=== PATIENT | female | born 1995 | race Caucasian/White ===

== ENCOUNTER 2016-07-17 17:00 | Emergency (ER) | payer MEDICAID ==
[~2016-07-17] VITALS: Ht 149.9 cm; Wt 46.6 kg
[2016-07-17 17:01] VITALS: Ht 149.9 cm; Wt 46.6 kg
[2016-07-17] MEDS ORDERED: ONDANSETRON (ODT) 4 MG TAB ODT STA (17:38)
[2016-07-17] MEDS ORDERED: KETOROLAC 30 MG INJ IM STA (17:38)
[2016-07-17 17:59] LABS: URINE BLOOD (Dip) POC Negative (NEGATIVE)
[2016-07-17] MEDS ORDERED: NAPR-260 PO (18:16)
--- NOTE | 2016-07-17 19:53 | ERD ---
ER Documentation Chief Complaint Date/Time DATE: 07/17/16 TIME: 19:51 Chief Complaint HEADCAHE WITH VOMITING X 1 DAY HPI This patient is a 21-year-old female with history of migraines presenting to the emergency department for right-sided unilateral headache which began this morning. Currently the symptoms are moderate. Additionally she reports 2 episodes of vomiting this morning which was nonbilious and nonbloody. She took Tylenol with only mild relief of her symptoms. She denies urinary symptoms, fevers, chills, or other symptoms at this time. ROS All systems reviewed and are negative except as per history of present illness. Medications Home Meds Active Scripts Naproxen* (Naprosyn*) 500 Mg Tablet, 500 MG PO BID Y for PAIN AND/OR INFLAMMATION, #20 TAB Prov:JAMMIE SILVA PA-C 07/17/16 Allergies Allergies: Coded Allergies: No Known Allergy (Unverified , 04/14/15) PMhx/Soc History of Surgery: No Anesthesia Reaction: No Hx Neurological Disorder: No Hx Respiratory Disorders: No Hx Cardiac Disorders: Yes (HEART MURMUR) Hx Psychiatric Problems: No Hx Miscellaneous Medical Probl: Yes (DEPO SHOT) Hx Alcohol Use: No Hx Substance Use: No Hx Tobacco Use: No FmHx Noncontributory for chief complaint Physical Exam Vitals Vital Signs Date Time Temp Pulse Resp B/P Pulse Ox O2 Delivery O2 Flow Rate FiO2 07/17/16 17:01 100.0 75 18 119/59 99 Physical Exam Const: The patient is resting comfortably in no acute distress. Head: Atraumatic Eyes: Normal Conjunctiva ENT: Normal External Ears, Nose and Mouth. Neck: Full range of motion..~ No meningismus. Resp: Clear to auscultation bilaterally Cardio: Regular rate and rhythm, no murmurs Abd: Soft, non tender, non distended. Normal bowel sounds Skin: No petechiae or rashes Back: No midline or flank tenderness Ext: No cyanosis, or edema Neur: Awake and alert Psych: Normal Mood and Affect Results 24 hrs Laboratory Tests Test 07/17/16 17:57 Bedside Urine Blood Negative Bedside Urine Glucose (UA) Negative Bedside Urine Ketones (LAB) Negative Bedside Urine Leukocyte Esterase (L Negative Bedside Urine Nitrite (LAB) Negative Bedside Urine Protein (LAB) 1+ Bedside Urine pH (LAB) 8.5 Current Medications Medications (Trade) Dose Ordered Sig/Matty Route PRN Reason Start Time Stop Time Status Last Admin Dose Admin Ketorolac Tromethamine (Toradol) 30 mg ONCE STAT IM 07/17/16 17:38 07/17/16 17:43 DC 07/17/16 18:03 Ondansetron HCl (Zofran Odt) 4 mg ONCE STAT ODT 07/17/16 17:38 07/17/16 17:43 DC 07/17/16 18:00 Procedures/MDM EMERGENCY DEPARTMENT COURSE / MEDICAL DECISION MAKING: This is a 21-year-old female who comes to the emergency room secondary to complaints of right-sided unilateral migraine. The patient was given IM Toradol and p.o. Zofran in the department. On re- evaluation, the patient was feeling improved. Urine dip was negative for any proteinuria or infection. Urine test was negative. The primary diagnosis is headache of unclear etiology. I have low suspicion for meningitis, intracranial hemorrhage, temporal arteritis or other emergent conditions at this time. Discharge: I have discussed the lab results and diagnostic findings with the patient and answered any questions or concerns. The patient was discharged with a prescription for naproxen. The patient was advised to followup with their PMD in 1-2 days and to return to the Emergency Department if there are any new or worsening symptoms. The patient understood and agreed with the diagnosis, treatment and plan. The patient is stable for discharge at this time. Departure Diagnosis: Primary Impression: Headache Headache type: unspecified Headache chronicity pattern: acute headache Intractability: not intractable Qualified Code: R51 - Acute nonintractable headache, unspecified headache type Condition: Fair Patient Instructions: Self-Care for Headaches Referrals: [facility] YOU HAVE RECEIVED A MEDICAL SCREENING EXAM AND THE RESULTS INDICATE THAT YOU DO NOT HAVE A CONDITION THAT REQUIRES URGENT TREATMENT IN THE EMERGENCY DEPARTMENT. FURTHER EVALUATION AND TREATMENT OF YOUR CONDITION CAN WAIT UNTIL YOU ARE SEEN IN YOUR DOCTORS OFFICE WITHIN THE NEXT 1-2 DAYS. IT IS YOUR RESPONSIBILITY TO MAKE AN APPOINTMENT FOR FOLOW-UP CARE. IF YOU HAVE A PRIMARY DOCTOR --you should call your primary doctor and schedule an appointment IF YOU DO NOT HAVE A PRIMARY DOCTOR YOU CAN CALL OUR PHYSICIAN REFERRAL HOTLINE AT IF YOU CAN NOT AFFORD TO SEE A PHYSICIAN YOU CAN CHOSE FROM THE FOLLOWING [facility] [address] [facility] [address] [facility] [address] [facility] [address] [facility] [place] [address] [facility]. [facility] [address] Additional Instructions: Follow-up with your primary care physician within 1 week. Return to the emergency department immediately should you have any new or worsening symptoms, uncontrolled fevers, or other unexplained symptoms. Take all medications as directed. JAMMIE SILVA PA-C Jul 17, 2016 19:53
== END 2016-07-17 18:35 | disposition home or self-care (01) ==
LOC: FTE 17:00
DX: R51 Headache (principal); R11.10 Vomiting, unspecified
CPT/HCPCS: 81003; 96372; J1885; Z7502; Z7610

== ENCOUNTER 2017-02-26 23:08 | Emergency (ER) | payer MEDICAID ==
[~2017-02-26] VITALS: Ht 152.4 cm; Wt 51.0 kg
[~2017-02-26 23:08] MED LIST: NAPR-260 PO
[2017-02-26 23:11] VITALS: Ht 152.4 cm; Wt 51.0 kg
[2017-02-27] MEDS ORDERED: ONDANSETRON (ODT) 4 MG TAB ODT STA (00:09)
--- NOTE | 2017-02-27 00:25 | ERD ---
ER Documentation Chief Complaint Chief Complaint migraine headache HPI 21-year-old female presents here to emergency department for complaints of headache for 2 days now, has been having on and off headache for 10 years now, patient has had never had any CT scan done before, patient describes the pain as throbbing pain, 6/10 scale, accompanied with nausea and vomiting, and photosensitivity. Patient denies any head injury. Patient denies any blurry vision, changes in balance or memory. Patient took Advil Tylenol and ibuprofen at home with only mild relief. ROS All systems reviewed and are negative except as per history of present illness. Medications Home Meds Active Scripts Naproxen* (Naprosyn*) 500 Mg Tablet, 500 MG PO BID Y for PAIN AND/OR INFLAMMATION, #20 TAB Prov:JAMMIE SILVA PA-C 07/17/16 Allergies Allergies: Coded Allergies: No Known Allergy (Unverified , 04/14/15) PMhx/Soc Medical and Surgical Hx: pt denies Medical Hx, pt denies Surgical Hx History of Surgery: No Anesthesia Reaction: No Hx Neurological Disorder: Yes (HEADACHES) Hx Respiratory Disorders: No Hx Cardiac Disorders: Yes (HEART MURMUR) Hx Psychiatric Problems: No Hx Miscellaneous Medical Probl: Yes (DEPO SHOT) Hx Alcohol Use: No Hx Substance Use: No Hx Tobacco Use: No Smoking Status: Never smoker FmHx Family History: No coronary disease, No diabetes, No other Physical Exam Vitals Vital Signs Date Time Temp Pulse Resp B/P Pulse Ox O2 Delivery O2 Flow Rate FiO2 02/26/17 23:11 98.0 71 20 110/71 100 Physical Exam GENERAL: The patient is well developed and appropriate for usual state of health, in no apparent distress. CHEST: Clear to auscultation bilaterally. There are no rales, wheezes or rhonchi. HEART: Regular rate and rhythm. No murmurs, clicks, rubs or gallops. No S3 or S4. ABDOMEN: Soft, nontender and nondistended. Good bowel sounds. No rebound or guarding. No gross peritonitis. No gross organomegaly or masses. No Estes sign or McBurney point tenderness. BACK: No midline or flank tenderness. EXTREMITIES: Equal pulses bilaterally. There is no peripheral clubbing, cyanosis or edema. No focal swelling or erythema. Full range of motion. Grossly neurovascularly intact. NEURO: Alert and oriented. Cranial nerves 2-12 intact. Motor strength in all 4 extremities with 5/5 strength. Sensation grossly intact. Normal speech and gait. Negative Romberg sign. Negative pronator drift. SKIN: There is no apparent rash or petechia. The skin is warm and dry. HEMATOLOGIC AND LYMPHATIC: There is no evidence of excessive bruising or lymphedema. No gross cervical, axillary, or inguinal lymphadenopathy. Results 24 hrs Current Medications Medications (Trade) Dose Ordered Sig/Matty Route PRN Reason Start Time Stop Time Status Last Admin Dose Admin Ondansetron HCl (Zofran Odt) 4 mg ONCE STAT ODT 02/27/17 00:09 02/27/17 00:11 DC 02/27/17 00:23 Acetam/Butalbital/ Caffeine/Codeine (Fioricet/ Codeine) 1 cap ONCE ONCE PO 02/27/17 00:30 02/27/17 00:31 DC 02/27/17 00:23 Patient was given Zofran here in the emergency department. After treatment, patient was able to tolerate po fluids here in the emergency department without any vomiting. There is no signs and symptoms of dehydration. Patient was given medication for pain here in emergency department, after treatment, patient verbalized feeling much better. Patient's pain is improved. PROCEDURE: CT Brain without contrast. CLINICAL INDICATION: Headache. TECHNIQUE: A CT of the brain was performed utilizing axial imaging from the skull base through the vertex without IV contrast. Multiplanar reformatted images were made. Images were reviewed on a PACS workstation. The CTDIvol is 44.63 mGy and the DLP is 720.23 mGycm. One or more of the following dose reduction techniques were utilized: 1.) Automated exposure control 2.) Adjustment of the mA +/- kV according to patient's size 3.) Use of iterative reconstruction technique. COMPARISON: None FINDINGS: There is no intracranial hemorrhage, mass effect, or midline shift. No extra- axial fluid collection is seen. The ventricles and sulci are normal in size and configuration. The density of the brain is normal, and the parsons white matter differentiation appears well-preserved. The visualized paranasal sinuses and osseous structures are grossly unremarkable. IMPRESSION: 1. No evidence of acute intracranial pathology. 2. The brain is normal in appearance. RPTAT: [facility] Physician Nicolette Date Time Electronically viewed and signed by Jeremias Reeves Physician on 02/27/2017 01:18 RS/ CC: ROSAS LOWE NP Procedures/MDM Medical Decision Making: Patient symptoms are consistent with migraine headache , possible tension headache. There is low suspicion for neurological emergencies at this time since patients neurologic exam is normal. Patient did not have any altered level consciousness, vomiting, changes in balance or memory and did not have any head injury. Patients CT scan of the head does not show any neurological emergencies at this time. Rx: Fioricet with codeine, Zofran Dispostion: Home. Stable Disclaimer: Inadvertent spelling and grammatical errors are likely due to EHR/ dictation software use and do not reflect on the overall quality of patient care. Also, please note that the electronic time recorded on this note does not necessarily reflect the actual time of the patient encounter. Departure Diagnosis: Primary Impression: Headache Headache type: unspecified Headache chronicity pattern: acute headache Intractability: not intractable Qualified Code: R51 - Acute nonintractable headache, unspecified headache type Condition: Stable Patient Instructions: Self-Care for Headaches ROSAS LOWE NP Feb 27, 2017 00:25
[2017-02-27] MEDS ORDERED: ACET/BUTAL/CAFF/CODEINE CAP PO ONE (00:30)
--- NOTE | 2017-02-27 01:18 | RADRPT ---
PROCEDURE: CT Brain without contrast. CLINICAL INDICATION: Headache. TECHNIQUE: A CT of the brain was performed utilizing axial imaging from the skull base through the vertex without IV contrast. Multiplanar reformatted images were made. Images were reviewed on a [employer] workstation. The CTDIvol is 44.63 mGy and the DLP is 720.23 mGycm. One or more of the following dose reduction techniques were utilized: 1.) Automated exposure control 2.) Adjustment of the mA +/- kV according to patient's size 3.) Use of iterative reconstruction technique. COMPARISON: None FINDINGS: There is no intracranial hemorrhage, mass effect, or midline shift. No extra-axial fluid collection is seen. The ventricles and sulci are normal in size and configuration. The density of the brain is normal, and the parsons white matter differentiation appears well-preserved. The visualized paranasal sinuses and osseous structures are grossly unremarkable. IMPRESSION: 1. No evidence of acute intracranial pathology. 2. The brain is normal in appearance. RPTAT: [facility] Physician Nicolette Date Time Electronically viewed and signed by Physician Nicolette on 02/27/2017 01:18 RS/
[2017-02-27] MEDS ORDERED: ABCC1C PO (01:39)
[2017-02-27] MEDS ORDERED: ONDA4TAB14 PO (01:39)
[2017-02-27 01:55] VITALS: BP 120/86; PULSE 71; RESP 16; TEMP 98.1
== END 2017-02-27 01:58 | disposition home or self-care (01) ==
LOC: FTE 23:08
DX: R51 Headache (principal)
CPT/HCPCS: 70450; Z7502; Z7610

== ENCOUNTER 2018-06-30 16:08 | Emergency (ER) | payer MEDICAID ==
[~2018-06-30] VITALS: Ht 149.9 cm; Wt 57.3 kg
[~2018-06-30 16:08] MED LIST changes: +ABCC1C PO; -NAPR-260 PO; +NAPR-985 PO; +ONDA4TAB14 PO
[2018-06-30 16:25] VITALS: BP 107/58; PULSE 72; RESP 16; Ht 149.9 cm; Wt 57.3 kg
[2018-06-30] MEDS ORDERED: PHENAZOPYRIDINE 100 MG TAB PO ONE (18:30)
[2018-06-30] MEDS ORDERED: CEPHALEXIN 500 MG CAP PO ONE (18:30)
[2018-06-30] MEDS ORDERED: PHEN-538 PO (18:39)
[2018-06-30] MEDS ORDERED: CEPH-443 PO (18:39)
--- NOTE | 2018-06-30 18:40 | ERD ---
ER Documentation Chief Complaint Chief Complaint pt is bib self with c/o painful urination x 3 days HPI 23-year-old female presents with dysuria for last 3 days. She denies fevers, vomiting, significant abdominal pain. She has mild suprapubic pain. She denies any concern for STDs or . She denies previous history of UTI. ROS All systems reviewed and are negative except as per history of present illness. Medications Home Meds Active Scripts Phenazopyridine Hcl* (Pyridium*) 200 Mg Tab, 200 MG PO TID PRN for URINARY PAIN, #6 TAB Prov:ANASTASIYA HALL MD 06/30/18 Cephalexin* (Keflex*) 500 Mg Capsule, 500 MG PO QID for 5 Days, CAP Prov:ANASTASIYA HALL MD 06/30/18 Ondansetron (Ondansetron Odt) 4 Mg Tab.rapdis, 4 MG PO Q8 PRN for NAUSEA AND/OR VOMITING, #30 TAB Prov:ROSAS LOWE NP 02/27/17 Iiyoyaxdprfeg-Snwdkqrgyj-Chntjmjb-Codeine* (Fioricet w/Codeine*) [id number] Cap, 1 CAP PO Q4H PRN for PAIN LEVEL 1-5, #20 CAP Prov:ROSAS LOWE NP 02/27/17 Naproxen* (Naprosyn*) 500 Mg Tablet, 500 MG PO BID PRN for PAIN AND/OR INFLAMMAT ION, #20 TAB Prov:JAMMIE SILVA PA-C 07/17/16 Allergies Allergies: Coded Allergies: No Known Allergy (Unverified , 04/14/15) PMhx/Soc History of Surgery: No Anesthesia Reaction: No Hx Neurological Disorder: Yes (HEADACHES) Hx Respiratory Disorders: No Hx Cardiac Disorders: Yes (HEART MURMUR) Hx Psychiatric Problems: No Hx Miscellaneous Medical Probl: Yes (DEPO SHOT) Hx Alcohol Use: No Hx Substance Use: No Hx Tobacco Use: No Smoking Status: Never smoker FmHx Family History: No diabetes, No coronary disease, No other Physical Exam Vitals Vital Signs Date Temp Pulse Resp B/P (MAP) Pulse Ox O2 O2 Flow FiO2 Time Delivery Rate 06/30/18 98.6 72 16 107/58 98 16:25 (74) Physical Exam Const: No acute distress Head: Atraumatic Eyes: Normal Conjunctiva ENT: Normal External Ears, Nose and Mouth. Neck: Full range of motion. No meningismus. Resp: Clear to auscultation bilaterally Cardio: Regular rate and rhythm, no murmurs Abd: Soft, non tender, non distended. Normal bowel sounds. Minimal suprapubic tenderness. No tenderness McBurney's point no Estes sign. Skin: No petechiae or rashes Back: No midline or flank tenderness Ext: No cyanosis, or edema Neur: Awake and alert Psych: Normal Mood and Affect Results 24 hrs Laboratory Tests Test 06/30/18 17:31 06/30/18 17:32 Bedside Urine pH (LAB) 6.0 Bedside Urine Protein (LAB) Negative Bedside Urine Glucose (UA) Negative Bedside Urine Ketones (LAB) Negative Bedside Urine Blood 2+ Bedside Urine Nitrite (LAB) Positive Bedside Urine Leukocyte Esterase (L 2+ POC Beta HCG, Qualitative NEGATIVE Current Medications Medications Dose Sig/Matty Start Time Status Last (Trade) Ordered Route PRN Stop Time Admin Dose Reason Admin Cephalexin 500 mg ONCE ONCE 06/30/18 DC (Keflex) PO 18:30 06/30/18 18:31 200 mg ONCE ONCE 06/30/18 DC Phenazopyridi PO 18:30 06/30/18 ne HCl 18:31 (Pyridium) Procedures/MDM Urine shows leukocytes, nitrites and hemoglobin. HCG negative. Patient was given Keflex and Pyridium. Patient presents with signs and symptoms of uncomplicated cystitis without signs of abdominal pain. Doubt tubo-ovarian abscess, surgical abdomen, appendicitis. She will be treated with Keflex, Pyridium, return precautions and primary care follow-up. The patient was stable with no new complaints during the ER course. Clinically, there is no current evidence to suggest meningitis, sepsis, acute abdomen, pneumonia, stroke, acute coronary syndrome, pulmonary embolism, aortic dissection or any other emergent condition appearing to require further evaluation or hospitalization. Patient counseled regarding my diagnostic impression and care plan. Prior to discharge all questions answered. Pt agrees with treatment plan and understands strict return precautions. Pt is instructed to follow up with primary care provider within 24-48 hours. Precautionary instructions provided including instructions to return to the ER if not improving or for any worsening or changing symptoms or concerns. Departure Diagnosis: Primary Impression: Dysuria Condition: Stable Patient Instructions: Urinary Tract Infections in Women Referrals: NO PRIMARY,CARE PHYSICIAN (PCP) Additional Instructions: Drink plenty of fluids at home. Recheck for vomiting, fevers, abdominal pain, new worsening symptoms. ANASTASIYA HALL MD Jun 30, 2018 18:40
== END 2018-06-30 19:02 | disposition home or self-care (01) ==
LOC: FTE 16:08
DX: R30.0 Dysuria (principal)
CPT/HCPCS: 81003; 81025; Z7610; 99283